=== PATIENT | male | born 1965 ===

== ENCOUNTER 2016-10-18 14:07 | Emergency (ER) | payer BC ==
[~2016-10-18] VITALS: Ht 170.2 cm; Wt 61.2 kg
[2017-02-24] MEDS ORDERED: ANORO ELLIPTA1 EACH INH (09:41)
[2017-02-24] MEDS ORDERED: VENTOLIN HFA18 GM INH (09:42)
== END 2016-10-18 15:50 | disposition left against medical advice (07) ==
LOC: ER 14:07
DX: J44.1 Chronic obstructive pulmonary disease with (acute) exacerbation (principal); F17.210 Nicotine dependence, cigarettes, uncomplicated; M54.9 Dorsalgia, unspecified
CPT/HCPCS: J2930